=== PATIENT | male | born 1985 | race Two or more races ===

== ENCOUNTER 2019-06-30 15:37 | Inpatient (IN) | payer OTHER ==
[~2019-06-30] VITALS: Ht 170.2 cm; Wt 85.7 kg
[2019-07-07] MEDS ORDERED: ATARAX25 MG PO (15:46)
[2019-07-07] MEDS ORDERED: CHOLESTYRAMINE P4 GM PO (15:46)
== END 2019-07-07 15:53 | disposition home or self-care (01) | DRG 445 ==
LOC: ER 15:37 → MEDJ 07-01 16:04
PROVIDERS: ADMIT Internal Medicine
PROC: BW40ZZZ Ultrasonography of Abdomen (ICD-10-PCS; 2019-07-01)
PROC: BF37ZZZ Magnetic Resonance Imaging (MRI) of Pancreas (ICD-10-PCS; principal; 2019-07-03)
PROC: CF241ZZ Tomographic (Tomo) Nuclear Medicine Imaging of Gallbladder using Technetium 99m (Tc-99m) (ICD-10-PCS; 2019-07-04)
DX: K81.0 Acute cholecystitis (principal); K92.1 Melena; N32.89 Other specified disorders of bladder; K76.89 Other specified diseases of liver